=== PATIENT | male | born 1950 | race Hispanic/Latino ===

== ENCOUNTER → 2017-10-23 | Day surgery (SDC) | payer MEDICARE ==
[2017-10-23] VITALS (9 sets, daily range): BP systolic 117–141; BP diastolic 64–88
[~2017-10-23] VITALS: Ht 167.6 cm; Wt 77.6 kg
[~2017-10-23] MED LIST: CARVEDILOL12.5 MG PO; CARVEDILOL25 MG PO; DOCUSATE SODIU100 MG PO; DOXYCYCLINE HY100 MG PO; FENTANYL CITRATE/PF 100MCG/2 ML INJ ONE; HEPARIN SOD (PORCINE) 1000 UNIT/ML 30ML ONE; HEPARIN SOD/SOD CHLORIDE 2,000 ML ONE; HUMALOG100 UNIT/1; IOPAMIDOL 300MG/ML 100 ML INFUS..BTL IV ONE; LANTUS 3ML100 UNITS/; LIDOCAINE HCL 2% LOCAL 20 ML VIAL ONE; METRONIDAZOLE500 MG PO; MIDAZOLAM HCL 2 MG/2 ML VIAL ONE; MYFORTIC180 MG PO; NEORAL25 MG PO; NIFEDIPINE ER30 M1 PO; NITROGLYCERIN/D5W 200 MCG/ML 250 ML ONE; OMEPRAZOLE40 MG PO; PRASUGREL 10 MG TAB ONE; PREDNISONE5 M1 PO; SODIUM CHLORIDE 0.9% 1000ML 1,000 ML ONE; SODIUM CHLORIDE 0.9% INJ 10 ML VIAL ONE; VERAPAMIL HCL 2.5 MG/ML 2 ML VIAL ONE
[2017-10-23 09:37] LABS: BASOPHILS % 0.3 % (0.0-1.0); EOSINOPHILS # (AUTO) 0.1 (0.0-0.4); EOSINOPHILS % 1.6 % (0.0-6.0); HEMATOCRIT 32.1 % (38.2-49.6); HEMOGLOBIN 10.8 g/dL (14.0-18.0); LYMPHOCYTES % 14.4 % (18.0-39.1); MEAN CORPUSCULAR HEMOGLOBIN 29.4 pg (28-32); MEAN CORPUSCULAR HGB CONC 33.6 g/dL (31-35); MEAN CORPUSCULAR VOLUME 87.5 fL (81-99); MONOCYTES # (AUTO) 0.7 (0.2-0.8); MONOCYTES % 10.2 % (4.4-11.3); NEUTROPHILS # (AUTO) 4.9 (2.1-6.9); NEUTROPHILS % 72.6 % (38.7-80.0); PLATELET COUNT 196 x10e3/uL (140-360); RED BLOOD COUNT 3.67 x10e6/uL (4.3-5.7); RED CELL DISTRIBUTION WIDTH 13.9 % (11.7-14.4)
[2017-10-23 09:56] LABS: ALBUMIN 3.4 g/dL (3.5-5.0); CALCIUM 9.3 mg/dL (8.4-10.2); CREATININE, SERUM 1.62 mg/dL (0.72-1.25)
--- NOTE | 2017-10-23 14:29 | Operative Report ---
DATE OF PROCEDURE: October 23, 2017 INDICATIONS: Peripheral arterial disease and claudication of both lower extremities. PROCEDURES PERFORMED 1. Abdominal aortogram with bilateral lower extremity angiograms. 2. Selective placement of catheter from the left femoral artery to the right superficial femoral artery. 3. Additional 3rd-order catheter placement of the left femoral artery and the right posterior tibial artery. 4. Atherectomy and drug-coated balloon angioplasty of the right popliteal artery. 5. Angioplasty and atherectomy of the right posterior tibial artery. 6. Deployment left groin Perclose. 7. Secondary thrombectomy of the right popliteal artery. COMPLICATIONS: None. RECOMMENDATIONS: Dual antiplatelet therapy, as well as staged intervention on the left femoral artery. Access obtained in the left femoral artery. A 6-[place] sheath was placed. Abdominal aortogram demonstrated minimal disease in the abdominal aorta and iliacs bilaterally. The proximal femoral arteries appeared to be patent. Distal vessels could not be seen. The catheter was then advanced from the left femoral artery to the right superficial femoral artery confirming 80% stenosis of the distal right popliteal artery. Infrapopliteal vessels were not well seen. The catheter was advanced from the left femoral artery to the right posterior tibial artery (additional 3rd-order catheter placement). There was a 90% stenosis in the proximal right posterior tibial artery. The anterior tibial artery was completely occluded from its region without reconstitution. A decision was made to intervene on the right popliteal and posterior tibial artery. The patient received 8000 units of intravenous heparin. The sheath was exchanged to a 6-[place], 45-cm sheath advanced from the left femoral to the right superficial femoral artery. The lesions were crossed with a Glidewire, which was then exchanged to a Viper wire. Orbital atherectomy using a 1.25-mm [place] was performed on the right distal popliteal artery with large amounts of visible thrombus necessitating manual aspiration thrombectomy. Similarly, atherectomy of the right posterior tibial artery was performed. Balloon dilatation with a 4 mm drug-coated balloon. Excellent end result, less than 10% residual stenosis. Two-vessel runoff to the right foot. Left leg angiogram demonstrates 70% stenosis of the distal left superficial femoral artery. The left groin was repaired using Perclose. Patient was observed in the hospital for 2 hours and subsequently discharged home with instructions for followup. Job#: [id number]
== END | disposition home or self-care (01) ==
LOC: CATH LAB 09:06
PROVIDERS: ATTEND Internal Medicine Interventional Cardiology
DX: I70.213 Atherosclerosis of native arteries of extremities with intermittent claudication, bilateral legs (principal); I70.92 Chronic total occlusion of artery of the extremities; E11.9 Type 2 diabetes mellitus without complications; Z79.4 Long term (current) use of insulin; Z82.49 Family history of ischemic heart disease and other diseases of the circulatory system
CPT/HCPCS: 36415; 37225; 37229; 80053; 85025; C1724; C1725 ×2; C1769 ×2; C1887; J1644; J2001; J2250; J7030; Q9967; 37224; 75630; 75716; 92924